=== PATIENT | male | born 1975 | race Caucasian/White ===

== ENCOUNTER 2017-12-25 09:06 | Emergency (ER) | payer BC ==
[2017-12-25 09:45] VITALS: BP 169/70
--- NOTE | 2017-12-25 11:17 | EDM.PDOC ---
ED HPI GENERAL MEDICAL PROBLEM - General Chief Complaint: Back Pain or Injury Stated Complaint: LOW BACK PAIN Time Seen by Provider: 12/25/17 11:13 Source of Information: Reports: Patient History Limitations: Reports: No Limitations - History of Present Illness INITIAL COMMENTS - FREE TEXT/NARRATIVE: 42 yo male presents to ER with lumbar back pain radiating into right upper leg. pain has been present for multiple months. Last evening pain was severe. He woke this AM in pain and tool Ibuprofen. The pain has since improved. denies fever, chills or general illness. denies trauma to back, saddle numbness, loss of bowel or bladder. Treatments PATROL SERGEANT: Reports: NSAIDS lower back Pain Score (Numeric/FACES): 8 - Related Data Allergies Allergy/AdvReac Type Severity Reaction Status Date / Time No Known Allergies Allergy Verified 12/25/17 09:47 Home Meds: Home Meds Bromocriptine [Parlodel] 7.5 mg PO DAILY 12/25/17 [History] Escitalopram [Lexapro] 20 mg PO DAILY 12/25/17 [History] Past Medical History Psychiatric History: Reports: Depression - Past Surgical History GI Surgical History: Reports: Bariatric Procedure Musculoskeletal Surgical History: Reports: Other (See Below) Other Musculoskeletal Surgeries/Procedures:: hip surgery with pins Social & Family History - Tobacco Use Smoking Status *Q: Never Smoker - Recreational Drug Use Recreational Drug Use: No ED ROS GENERAL - Review of Systems Review Of Systems: See Below Constitutional: Denies: Fever, Chills, Fatigue Respiratory: Denies: Shortness of Breath, Wheezing Cardiovascular: Denies: Chest Pain GI/Abdominal: Denies: Abdominal Pain Skin: Denies: Rash Neurological: Denies: Dizziness, Headache ED EXAM,LOWER BACK PAIN/INJURY - Physical Exam Exam: See Below Exam Limited By: No Limitations General Appearance: Alert, WD/WN, No Apparent Distress Head: Atraumatic, Normocephalic Respiratory/Chest: No Respiratory Distress, Lungs Clear, Normal Breath Sounds. No: Crackles, Rhonchi, Wheezing Cardiovascular: Regular Rate, Rhythm, No Edema, No Murmur Back Exam: Normal Inspection, Full Range of Motion, Decreased Range of Motion ( mild related to pain), Paraspinal Tenderness (lumbar worse on right). No: CVA Tenderness (R), CVA Tenderness (L), Vertebral Tenderness Neurological: Alert, Normal Mood/Affect, Normal Gait, Normal Reflexes, Oriented x 3 Skin Exam: Warm, Dry, Intact, No Rash Course - Vital Signs Last Recorded V/S: Last Vital Signs Temp 36.3 C 12/25/17 09:44 Pulse 71 12/25/17 09:44 Resp 16 12/25/17 09:44 BP 169/70 H 12/25/17 09:44 Pulse Ox 98 12/25/17 09:44 Departure - Departure Time of Disposition: 11:13 Disposition: Home, Self-Care 01 Condition: Good Clinical Impression: Lumbar back pain - Discharge Information *PRESCRIPTION DRUG MONITORING PROGRAM REVIEWED*: Not Applicable *COPY OF PRESCRIPTION DRUG MONITORING REPORT IN PATIENT LISHA: Not Applicable Instructions: Back Exercises, [id number] Referrals: PCP,None [Primary Care Provider] - Forms: ED Department Discharge Additional Instructions: cyclobenziprine 10 mg up to 3 times pre day Etodalac 400 mg twice daily - take every day for the next 5 days then as needed stretching follow-up with primary care for referral to physical therapy if does not resolve
== END 2017-12-25 11:22 | disposition home or self-care (01) ==
LOC: JP.ED 09:06
DX: M54.5 Low back pain (principal); Z79.899 Other long term (current) drug therapy
CPT/HCPCS: 99283